=== PATIENT | male | born 1980 | race Caucasian/White ===

== ENCOUNTER 2017-07-21 18:53 | Emergency (ER) | payer SELFPAY ==
[~2017-07-21] VITALS: Ht 193 cm; Wt 100.7 kg
[2017-07-21 19:32] LABS: Urine RBC None Seen /hpf (0 - 3)
[2017-07-21 20:23] LABS: Basophils # (auto) 0 uL; Basophils % (auto) 0.4 % (0.0-2.0); CONDITION Y; Eosinophils # (auto) 0.2 uL; Eosinophils % (auto) 1.8 % (0.0-7.0); Hematocrit 49.7 % (41.0-53.0); Lymphocytes % (auto) 33.9 % (10.0-50.0); Mean Corpuscular Hemoglobin 33.1 pg (28.0-32.0); Mean Corpuscular Hgb Conc. 34.3 g/dL (32.0-36.0); Mean Corpuscular Volume 96.5 fL (80.0-100.0); Mean Platelet Volume 7.9 fL (7.4-10.4); Monocytes # (auto) 0.2 uL; Monocytes % (auto) 2.6 % (0.0-12.0); Neutrophils # (auto) 5.3 uL; Neutrophils % (auto) 61.3 % (37.0-80.0); Platelet Count (auto) 297 10^3/uL (140-450); Red Cell Distribution Width 13.1 % (11.6-16.0); White Blood Cell 8.7 10^3/uL (4.4-10.8)
[2017-07-21 20:24] LABS: Urine Bilirubin Negative (Negative); Urine Blood Negative /uL (Negative); Urine Color Yellow (Yellow); Urine Glucose Normal (Normal); Urine Ketone Negative (Negative); Urine Mucus FEW (None Seen); Urine Nitrite Negative (Negative); Urine Squamous Epithelial Cell FEW /hpf (<5); Urine Urobilinogen Normal (Negative); Urine pH 6.5 (5.0-8.0)
[2017-07-21 20:52] LABS: Albumin 3.9 g/dL (3.4-5.0); Anion Gap 14 (5-15); Blood Urea Nitrogen 13 mg/dL (7-18); Calcium 8.3 mg/dL (8.5-10.1); Carbon Dioxide 23 mmol/L (21-32); Chloride 106 mmol/L (98-107); Glucose 117 mg/dL (74-106); Magnesium 2.3 mg/dL (1.6-2.6); Sodium 143 mmol/L (136-145)
[2017-07-21 20:54] LABS: Aspartate Aminotransferase 60 U/L (15-37); BUN/Creatinine Ratio 11.2; GFR African American 90 mL/min; GFR Non-African American 74 mL/min
[2017-07-21 21:08] LABS: Alkaline Phosphatase 106 U/L (45-117); Bilirubin, Total 0.6 mg/dL (0.2-1.0); Total Protein 7.9 g/dL (6.4-8.2)
[2017-07-21] MEDS ORDERED: THIAMINE HCL 100 MG/ML 2ML VIAL ONE (21:49)
[2017-07-21] MEDS ORDERED: MVI in SODIUM CHLORIDE 0.9% 1,010 ML IV ONE (21:53)
[2017-07-21] MEDS ORDERED: THIAMINE INJ 100 MG, MULTIPLE VITAMIN 10 ML, FOLIC ACID 1 MG, MAGNESIUM SULF SDV 50% 8 ... IV ONE ×5 (22:00)
[2017-07-21] MEDS ORDERED: cloNIDine HCL 0.1 MG TAB PO ONE (22:00)
[2017-07-21] MEDS ORDERED: THIAMINE HCL 100 MG/ML 2ML VIAL IV ONE (22:00)
[2017-07-21 22:32] VITALS: BP 164/117
[2017-07-21] MEDS ORDERED: LORazepam 2MG/ML-1ML VIAL IV ONE (22:45)
[2017-07-21] MEDS ORDERED: LABETALOL HCL 200 MG TAB PO ONE (22:45)
== END 2017-07-21 23:32 | disposition home or self-care (01) ==
LOC: ER 18:56
DX: T65.91XA Toxic effect of unspecified substance, accidental (unintentional), initial encounter (principal); G92 Toxic encephalopathy; F10.120 Alcohol abuse with intoxication, uncomplicated; I10 Essential (primary) hypertension; F41.9 Anxiety disorder, unspecified; F17.210 Nicotine dependence, cigarettes, uncomplicated; F12.10 Cannabis abuse, uncomplicated; G89.29 Other chronic pain; M54.9 Dorsalgia, unspecified; Y92.89 Other specified places as the place of occurrence of the external cause
CPT/HCPCS: 36415; 80053; 80307; 81001; 83735; 84484; 85025; 93005; 96361; 96374; 99285; J3411